=== PATIENT | female | born 1960 | race Caucasian/White ===

== ENCOUNTER 2018-05-10 12:04 | Outpatient (CLI) | payer BC, SELFPAY ==
[2018-05-10 12:10] VITALS: BP 133/91; PULSE 96; RESP 18; TEMP 35.8; O2SAT 97
--- NOTE | 2018-05-10 13:31 | DI.RAD_ITS ---
SYMPTOMS/DIAGNOSIS: LUMBAR EPIDURAL STEROID INJECTION PAIN CLINIC C-ARM FLUOROSCOPY OF THE LUMBAR SPINE: Fluoroscopy Time: 15.8 sec Fluoroscopy was provided for guidance with Pain Clinic lumbar spine injections. Hard copy images show needles projecting bilaterally in the lower lumbar spine. Please see procedure note for details.
[2018-05-10 13:43] VITALS: BP 148/91; PULSE 106; RESP 13; O2SAT 100
[2018-05-10] MEDS: Bupivacaine 0.5% Pres-Free 30 ML VIAL IJ (13:43)
--- NOTE | 2018-05-23 15:06 | PDOC.PAIN_ITS ---
Pain Clinic Procedure Note Current Active Problems Problem Status Onset Spondylosis of lumbar region without myelopathy or radiculopathy Chronic Lumbar/Sacral Medial Branch Blocks JOE DUNNE has been [facility] for lumbar/sacral medial branch blocks. COMMENTS: Patient had epidural steroid injection in July 2017 did well with resolution of her radicular symptoms. She is now complaining mostly of axial low back pain. On examination she did have positive bilaterally. Examination for SI joints dysfunction was positive only for Tree's bilaterally, left greater right. Patient was interviewed and the medical record reviewed. There were no medical , pharmacologic, radiographic or other structural contraindications to attempting fluoroscopically guided local anesthetic lumbar/sacral medial branch blocks. Risks and expected side effects as well as potential benefit of the procedure were reviewed and voiced concerns addressed. The printed consent form was signed and witnessed. Standard time-out procedure was performed. Patient was placed in the prone position on the fluoroscopy table and automated blood pressure cuff and pulse oximeter applied. The skin entry points for approaching the anatomic target points of the segmental medial branches of {bilateral L3,4,5} were identified with anfluoroscopy and marked. Following thorough Chlorhexadine preparation of the skin and draping and 1% lidocaine infiltration of the skin entry points and subcutaneous tissues, a 22 gauge spinal needle was placed under fluoroscopic guidance down on to the target point for each respective segmental medial branch.Position was confirmed in A/P, oblique and lateral views with 0.25ml of omnipaque 240. At each point .5ml 0.5% Bupivacaine was injected. Vital signs were stable throughout the procedure and were as recorded in the docflowsheet by the nursing staff. Follow up plans and appointments were discussed and was instructed to keep careful note of how the usual pain was modified by these injections. Specifically was asked to keep a pain diary for the next 24 hours using a numeric pain scale of 0-10 and report these results at the follow-up visit. Post procedure instruction was given as documented in the nursing documentation and having met discharge criteria. Patient was discharged from the [facility]. Based on the medial branches blocked today, if the patient has adequate relief and we are able to proceed to radiofrequency ablation, the treatment should result in the denervation of the {bilateral L4-5,L5-S1 FACET JOINTS}. We would expect to denervate a total of { 4} facets during the radiofrequency ablation. COMMENTS: Pain went from 4/10 to 11/06. If she meets criteria to follow-up for repeat shaista or frequency ablation depending on her insurance. If not I will consider SI joint injection. CC: Jim Montez
== END 2018-05-10 12:24 ==
PROVIDERS: PCP Family Medicine; Visit Provider Anesthesiology Pain Medicine
DX: M47.816 Spondylosis without myelopathy or radiculopathy, lumbar region (principal); G89.29 Other chronic pain
CPT/HCPCS: 64493; 64494; 64495; 72100